=== PATIENT | male | born 1960 | race Caucasian/White ===

== ENCOUNTER → 2020-11-26 | Outpatient (CLI) | payer OTHER | LOC: KOH-I 11:11 | DX: G56.00 Carpal tunnel syndrome, unspecified upper limb (principal); M47.812 Spondylosis without myelopathy or radiculopathy, cervical region | CPT/HCPCS: 72141 ==

== ENCOUNTER 2021-01-18 00:28 | Emergency (ER) | payer OTHER ==
[2021-01-18 03:48] LABS: HEMOGLOBIN 14.9 gm/dl (14.0-17.5); RED BLOOD COUNT 5.19 M/UL (4.20-5.50); WHITE BLOOD COUNT 5.7 K/UL (4.5-11.0)
[2021-01-18 04:11] LABS: BUN/CREATININE RATIO 16 (0-10)
== END 2021-01-18 08:24 | disposition home or self-care (01) ==
LOC: ER1 00:28
PROVIDERS: Family Medicine
DX: R07.9 Chest pain, unspecified (principal); Z20.822 Contact with and (suspected) exposure to COVID-19
CPT/HCPCS: 71046; 80053; 82550; 82553; 83874; 83880; 84484; 85025; 85379; 93005; 99285; Q9967

== ENCOUNTER → 2021-07-01 | Outpatient (CLI) | payer MEDICARE | LOC: KOH-I 13:00 | DX: M51.16 Intervertebral disc disorders with radiculopathy, lumbar region (principal); M25.78 Osteophyte, vertebrae; M48.061 Spinal stenosis, lumbar region without neurogenic claudication; M48.07 Spinal stenosis, lumbosacral region; M47.26 Other spondylosis with radiculopathy, lumbar region | CPT/HCPCS: 72148 ==

== ENCOUNTER → 2021-08-03 | Outpatient (CLI) | payer MEDICARE | LOC: KOH-I 08:10 | DX: R10.84 Generalized abdominal pain (principal); K76.0 Fatty (change of) liver, not elsewhere classified | CPT/HCPCS: 76705 ==

== ENCOUNTER → 2021-10-14 | Outpatient (CLI) | payer MEDICARE | LOC: KOH-I 10:06 | DX: M48.061 Spinal stenosis, lumbar region without neurogenic claudication (principal); M51.36 Other intervertebral disc degeneration, lumbar region | CPT/HCPCS: 72131 ==

== ENCOUNTER → 2021-11-24 | Outpatient (CLI) | payer MEDICARE ==
[~2021-11-24] MED LIST: ALDACTAZIDE 251 EACH PO; ASPIRIN EC81 MG PO; CYCLOBENZAPRINE10 MG PO; FLOMAX 0.4 MG0.4 MG PO; LEVOTHYROXINE25 MC1 PO; LIPITOR TAB 2020 MG PO; LOSARTAN POTAS100 MG PO; PROTONIX 40 MG40 M1 PO; TRAZODONE HCL100 MG PO
[2021-11-24 11:54] LABS: HEMOGLOBIN 15.3 gm/dl (14.0-17.5); RED BLOOD COUNT 5.35 M/UL (4.20-5.50); WHITE BLOOD COUNT 6.2 K/UL (4.5-11.0)
[2021-11-24 12:22] LABS: BUN/CREATININE RATIO 26 (0-10)
== END ==
LOC: OPSV2 10:00 → EDSTATUS 10:00 → OPSV2 10:48
PROVIDERS: Orthopaedic Surgery
DX: Z01.818 Encounter for other preprocedural examination (principal); M54.16 Radiculopathy, lumbar region; I65.29 Occlusion and stenosis of unspecified carotid artery
CPT/HCPCS: 36415; 71046; 80048; 81001; 83036; 85025; 85610; 85730; 87081; 93005

== ENCOUNTER → 2021-12-07 | Outpatient (CLI) | payer MEDICARE, OTHER ==
[~2021-12-07] MED LIST changes: +IBU800 MG PO; -LEVOTHYROXINE25 MC1 PO; +LEVOTHYROXINE25 MCG PO
[2021-12-07 10:29] LABS: BUN/CREATININE RATIO 25 (0-10)
== END ==
LOC: LAB 09:31
PROVIDERS: Orthopaedic Surgery
DX: Z01.812 Encounter for preprocedural laboratory examination (principal)
CPT/HCPCS: 36415; 80048; 86850; 86900; 86901; 86920; P9016

== ENCOUNTER 2021-12-08 05:13 | Inpatient (IN) | payer MEDICARE, OTHER ==
[~2021-12-08] VITALS: Ht 172.7 cm; Wt 118.4 kg
[~2021-12-08 05:13] MED LIST changes: -IBU800 MG PO
[2021-12-08 13:31] LABS: HEMOGLOBIN 11.9 gm/dl (14.0-17.5)
[2021-12-08 17:51] LABS: HEMOGLOBIN 7.9 gm/dl (14.0-17.5); RED BLOOD COUNT 2.72 M/UL (4.20-5.50); WHITE BLOOD COUNT 8.7 K/UL (4.5-11.0)
[2021-12-08 18:19] LABS: BUN/CREATININE RATIO 19 (0-10)
[2021-12-09 06:35] LABS: WHITE BLOOD COUNT 10.6 K/UL (4.5-11.0)
[2021-12-09 06:40] LABS: BUN/CREATININE RATIO 20 (0-10)
[2021-12-09 06:51] LABS: HEMOGLOBIN 12.4 gm/dl (14.0-17.5); RED BLOOD COUNT 4.29 M/UL (4.20-5.50)
[2021-12-09] MEDS ORDERED: IBU800 MG PO (10:41)
[2021-12-10 05:34] LABS: HEMOGLOBIN 11.3 gm/dl (14.0-17.5); RED BLOOD COUNT 3.88 M/UL (4.20-5.50); WHITE BLOOD COUNT 8.5 K/UL (4.5-11.0)
[2021-12-10 05:55] LABS: BUN/CREATININE RATIO 18 (0-10)
[2021-12-11 05:06] LABS: HEMOGLOBIN 10.7 gm/dl (14.0-17.5); RED BLOOD COUNT 3.71 M/UL (4.20-5.50); WHITE BLOOD COUNT 9.7 K/UL (4.5-11.0)
[2021-12-11 05:36] LABS: BUN/CREATININE RATIO 22 (0-10)
[2021-12-12 04:24] LABS: HEMOGLOBIN 10.2 gm/dl (14.0-17.5); RED BLOOD COUNT 3.51 M/UL (4.20-5.50); WHITE BLOOD COUNT 8.1 K/UL (4.5-11.0)
[2021-12-12 04:43] LABS: BUN/CREATININE RATIO 21 (0-10)
--- NOTE | 2021-12-12 14:29 | NUR ---
HEMOVAC REMOVED PER MD ORDER. SURGICAL WOUND CLEANSED WITH BETADINE AND ISLAND DRESSING APPLIED. MODERATE DRAINAGE NOTED FROM HEMOV[facility] REMOVAL SITE. BANDAGE AND GAUZE APPLIED.
[2021-12-13] MEDS ORDERED: POLYETHYLENE GL17 GM PO (10:24)
== END 2021-12-13 14:44 | disposition home or self-care (01) | DRG 459 ==
LOC: OR 05:13 → CCU 18:25
PROVIDERS: ADMIT Orthopaedic Surgery
PROC: 01NR0ZZ Release Sacral Nerve, Open Approach (ICD-10-PCS; 2021-12-08)
PROC: 4A11X4G Monitoring of Peripheral Nervous Electrical Activity, Intraoperative, External Approach (ICD-10-PCS; 2021-12-08)
PROC: 30233N1 Transfusion of Nonautologous Red Blood Cells into Peripheral Vein, Percutaneous Approach (ICD-10-PCS; 2021-12-08)
PROC: 0SG1071 Fusion of 2 or more Lumbar Vertebral Joints with Autologous Tissue Substitute, Posterior Approach, Posterior Column, Open Approach (ICD-10-PCS; principal; 2021-12-08 07:30)
PROC: 01NB0ZZ Release Lumbar Nerve, Open Approach (ICD-10-PCS; 2021-12-08 07:30)
DX: M48.061 Spinal stenosis, lumbar region without neurogenic claudication (principal); J96.01 Acute respiratory failure with hypoxia; J98.11 Atelectasis; Z20.822 Contact with and (suspected) exposure to COVID-19; D62 Acute posthemorrhagic anemia; G97.41 Accidental puncture or laceration of dura during a procedure; I10 Essential (primary) hypertension; E78.5 Hyperlipidemia, unspecified; E66.9 Obesity, unspecified; M47.896 Other spondylosis, lumbar region; F41.9 Anxiety disorder, unspecified; M54.16 Radiculopathy, lumbar region; K21.9 Gastro-esophageal reflux disease without esophagitis; N40.0 Benign prostatic hyperplasia without lower urinary tract symptoms; G47.00 Insomnia, unspecified; F32.A Depression, unspecified; Y83.8 Other surgical procedures as the cause of abnormal reaction of the patient, or of later complication, without mention of misadventure at the time of the procedure; Z96.653 Presence of artificial knee joint, bilateral; M79.7 Fibromyalgia; E03.9 Hypothyroidism, unspecified; K59.00 Constipation, unspecified; Z98.890 Other specified postprocedural states; Z87.891 Personal history of nicotine dependence; Z88.8 Allergy status to other drugs, medicaments and biological substances; Z88.6 Allergy status to analgesic agent; Z79.01 Long term (current) use of anticoagulants; Z79.82 Long term (current) use of aspirin; Z68.39 Body mass index [BMI] 39.0-39.9, adult
CPT/HCPCS: 36415; 36430; 71045; 72100; 72110; 76000; 80048; 82040; 82550; 82553; 84484; 85014; 85018; 85025; 85027; 97116-GP-CQ; 97161; 97165; 97530; C1713; C1762; C1781; J0690; J1040; J1100; J1170; J1200; J1644; J1885; J2250; J2370; J2405; J2704; J2710; J3010; J3370; J3475; J7040; P9016; P9045